=== PATIENT | female | born 1990 | race Two or more races ===

== ENCOUNTER 2025-02-05 18:51 | Emergency (ER) | payer MEDICAID ==
[~2025-02-05] VITALS: Ht 157.5 cm; Wt 77.1 kg
[2025-02-05 22:42] LABS: BASOPHILS # (AUTO) 0.1 K/UL (0.0-0.2); BASOPHILS % (AUTO) 0.9 % (0.0-2.0); EOSINOPHILS # (AUTO) 1.3 K/uL (0.0-0.7); EOSINOPHILS % (AUTO) 12.9 % (0.0-7.0); HEMATOCRIT 39.6 % (31.2-41.9); HEMOGLOBIN 13.2 g/dL (10.9-14.3); LYMPHOCYTES # (AUTO) 2.8 K/uL (0.8-4.8); MEAN CORPUSCULAR HEMOGLOBIN 29.1 uug (24.7-32.8); MEAN CORPUSCULAR HGB CONC 33 g/dL (32.3-35.6); MEAN CORPUSCULAR VOLUME 87.6 fL (75.5-95.3); MONOCYTES # (AUTO) 0.6 K/uL (0.1-1.30); MONOCYTES % (AUTO) 6.3 % (0.0-11.0); NEUTROPHILS # (AUTO) 5.1 K/uL (1.8-8.9); NEUTROPHILS % (AUTO) 51.9 % (38.5-71.5); PLATELET COUNT (AUTO) 377 K/uL (179-408); RED BLOOD CELL COUNT(AUTO) 4.52 MIL/uL (3.63-4.92); RED CELL DISTRIBUTION WIDTH 12.5 % (12.3-17.7); WHITE BLOOD COUNT (AUTO) 9.9 K/uL (3.8-11.8)
[2025-02-05 22:43] LABS: DIFFERENTIAL COMMENT 1
[2025-02-05 22:48] LABS: CALCIUM 9.3 mg/dL (8.5-10.1); CARBON DIOXIDE 28 mmol/L (21-32); CHLORIDE 101 mmol/L (98-107); CREATININE 0.4 mg/dL (0.6-1.3); GLUCOSE 92 mg/dL (74-106); POTASSIUM 3.9 mmol/L (3.5-5.1); SODIUM SERUM 137 mmol/L (136-145); UREA NITROGEN, BLOOD 17 mg/dL (7-18)
[2025-02-05] MEDS ORDERED: SILV50CR32 TP (22:55)
[2025-02-05] MEDS ORDERED: ALBU18HF2 INH (22:55)
[2025-02-05] MEDS ORDERED: KETO10TA2 PO (22:55)
[2025-02-05 23:03] LABS: ALANINE AMINOTRANSFERASE 39 U/L (14-59); ALKALINE PHOSPHATASE 59 U/L (50-136); ASPARTATE AMINOTRANSFERASE 17 U/L (15-37); BILIRUBIN,TOTAL 0.3 mg/dL (0.2-1.0); NT-PRO BNP 21 pg/mL (0-125); TOTAL PROTEIN, SERUM 8.1 g/dL (6.4-8.2)
[2025-02-05] MEDS ORDERED: ONDANSETRON 4 MG/2 ML VIAL ONE (23:18)
[2025-02-05] MEDS ORDERED: SILVER SULFADIAZINE 1% CREAM 50 GM TP ONE (23:19)
[2025-02-05] MEDS ORDERED: MORPHINE SULFATE 2 MG/1 ML DISP.SYRIN ONE (23:19)
[2025-02-05] MEDS: ONDANSETRON 4 MG/2 ML VIAL IV ONE (23:27)
[2025-02-05] MEDS: SILVER SULFADIAZINE 1% CREAM 50 GM TP ONE (23:27)
[2025-02-05] MEDS: MORPHINE SULFATE 2 MG/1 ML DISP.SYRIN IV ONE (23:29)
[2025-02-06 02:38] VITALS: BP 120/78; O2SAT 99
== END 2025-02-06 02:38 | disposition home or self-care (01) ==
LOC: ER 19:10
DX: T20.07XA Burn of unspecified degree of neck, initial encounter (principal); T22.051A Burn of unspecified degree of right shoulder, initial encounter; T23.002A Burn of unspecified degree of left hand, unspecified site, initial encounter; S09.8XXA Other specified injuries of head, initial encounter; R06.02 Shortness of breath; X08.8XXA Exposure to other specified smoke, fire and flames, initial encounter; Y93.89 Activity, other specified; Y92.59 Other trade areas as the place of occurrence of the external cause; Y99.8 Other external cause status
CPT/HCPCS: 99285; 96374; 70450; 71045; 96375; 80053; 83880; 85025; 84484; 36415; 16000; 93005; J2405; J2270; A4606; A4663